=== PATIENT | female | born 1990 | race Caucasian/White ===

== ENCOUNTER 2017-09-10 10:36 | Emergency (ER) | payer OTHER ==
[~2017-09-10] VITALS: Ht 165.1 cm; Wt 85.2 kg
[2017-09-10 10:38] VITALS: Ht 165.1 cm; Wt 85.2 kg
[2017-09-10 11:40] LABS: BASOPHIL # 0.1 10^3/ul (0.0-0.1); BASOPHILS % 0.6 % (0.0-2.0); EOSINOPHILS # 0.2 10^3/ul (0.0-0.5); EOSINOPHILS % 2.1 % (0.0-7.0); HEMATOCRIT 37.9 % (37.0-47.0); HEMOGLOBIN 11.3 g/dl (12.0-16.0); LYMPHOCYTES % 21.9 % (15.0-51.0); MEAN CORPUSCULAR HEMOGLOBIN 23.1 pg (29.0-33.0); MEAN CORPUSCULAR HGB CONC 29.8 g/dl (32.0-37.0); MEAN CORPUSCULAR VOLUME 77.5 fl (82.0-101.0); MEAN PLATELET VOLUME 10.4 fl (7.4-10.4); MONOCYTE # 0.8 10^3/ul (0.3-0.9); NEUTROPHILS % 66.2 % (39.0-77.0); PLATELET COUNT 328 10^3/UL (140-415); RED BLOOD COUNT 4.89 10^6/ul (4.20-5.40); RED CELL DISTRIBUTION WIDTH 20.2 % (11.5-14.5)
[2017-09-10 11:46] LABS: ADD UMIC YES; UR ASCORBIC ACID NEGATIVE (NEGATIVE); UR BACTERIA FEW /HPF (NONE SEEN); UR BILIRUBIN (Dip) NEGATIVE (NEGATIVE); UR BLOOD (Dip) 2+ mg/dL (NEGATIVE); UR CLARITY CLEAR (CLEAR); UR COLOR STRAW (YELLOW); UR GLUCOSE (Dip) NEGATIVE (NEGATIVE); UR KETONES (Dip) NEGATIVE (NEGATIVE); UR LEUKOCYTE ESTERASE (Dip) NEGATIVE Leu/ul (NEGATIVE); UR NITRITE (Dip) NEGATIVE (NEGATIVE); UR RBC 5 /HPF (0-5); UR SPECIFIC GRAVITY (Dip) 1.009 (1.003-1.030); UR TOTAL PROTEIN (Dip) NEGATIVE (NEGATIVE); UR UROBILINOGEN (Dip) NEGATIVE (NEGATIVE)
--- NOTE | 2017-09-10 13:12 | RADRPT ---
PROCEDURE: US Obstetrical 1st Trimester with endovaginal scanning and Doppler CLINICAL INDICATION: Vaginal bleeding TECHNIQUE: Multiple real-time images were acquired of the patient's maternal abdomen utilizing an endovaginal transducer. COMPARISON: None FINDINGS: The uterus is retroverted but normal in size and measures 6.1 cm in sagittal diameter and 4.9 x 4.6 cm in cross diameter.. The endometrial stripe is thickened to 1.1 cm in AP diameter. No gestational sac or pole is id entified. The right ovary measures 2.5 x 2.3 x 1.8 cm. The left ovary measures 2.2 x 2.0 x 1.6 cm Vascular flow is seen in each ovary on Doppler. No adnexal mass or free fluid is identified IMPRESSION: 1. Normal sized retroverted uterus with a 1.1 cm thick endometrial stripe. No gestational sac or fet al pole is evident. 2. A normal ovaries with normal vascular flow and with no adnexal mass or free fluid identified. 3. Correlation with quantitative serial beta HCG is recommended if the patient is or was suspected of being . Physician Love Date Time Electronically viewed and signed by Physician Love on 09/10/2017 13:11 /
[2017-09-10 13:41] VITALS: BP 132/78; PULSE 74; RESP 16; TEMP 98.1
--- NOTE | 2017-09-10 14:54 | ERD ---
ER Documentation Chief Complaint Chief Complaint back pain, vaginal bleeding with clots - LMP 07/21/17 HPI 27 yr old female complaining of vaginal bleeding x 2 days. A1. Patient is 7 weeks . Has not been seen by [facility] yet however did have a appointment scheduled at [facility]. Has not had an ultrasound yet. Had episodes of clotting yesterday. Denies medical problems. NKDA. Surgical history: Ectopic. ROS All systems reviewed and are negative except as per history of present illness. PMhx/Soc History of Surgery: No Anesthesia Reaction: No Hx Neurological Disorder: No Hx Respiratory Disorders: No Hx Cardiac Disorders: No Hx Psychiatric Problems: No Hx Miscellaneous Medical Probl: No Hx Alcohol Use: No Hx Substance Use: No Hx Tobacco Use: No Smoking Status: Never smoker Physical Exam Vitals Vital Signs Date Time Temp Pulse Resp B/P Pulse Ox O2 Delivery O2 Flow Rate FiO2 09/10/17 13:41 98.1 74 16 132/78 100 Room Air 09/10/17 10:38 98.1 71 18 139/75 100 Physical Exam GENERAL: The patient is well-appearing, well-nourished, in no acute distress CHEST: Clear to auscultation bilaterally. There are no rales, wheezes or rhonchi. HEART: Regular rate and rhythm. No murmurs, clicks, rubs or gallops. No S3 or S4. ABDOMEN:Soft, nontender and nondistended. Good bowel sounds. No rebound or guarding. No gross peritonitis. No gross organomegaly or masses. No Booker sign or McBurney point tenderness. BACK: No midline or flank tenderness. : Deferred Result Diagram: 09/10/17 1120 Results 24 hrs Laboratory Tests Test 09/10/17 11:20 09/10/17 11:25 White Blood Count 9.010^3/ul Red Blood Count 4.8910^6/ul Hemoglobin 11.3g/dl Hematocrit 37.9% Mean Corpuscular Volume 77.5fl Mean Corpuscular Hemoglobin 23.1pg Mean Corpuscular Hemoglobin Concent 29.8g/dl Red Cell Distribution Width 20.2% Platelet Count 23114^3/UL Mean Platelet Volume 10.4fl Neutrophils % 66.2% Lymphocytes % 21.9% Monocytes % 9.0% Eosinophils % 2.1% Basophils % 0.6% Nucleated Red Blood Cells % 0.0/100WBC Neutrophils # 6.010^3/ul Lymphocytes # 2.010^3/ul Monocytes # 0.810^3/ul Eosinophils # 0.210^3/ul Basophils # 0.110^3/ul Nucleated Red Blood Cells # 0.010^3/ul Beta HCG, Quantitative 103.5mIU/ml Urine Color STRAW Urine Clarity CLEAR Urine pH 7.0 Urine Specific [place] 1.009 Urine Ketones NEGATIVEmg/dL Urine Nitrite NEGATIVEmg/dL Urine Bilirubin NEGATIVEmg/dL Urine Urobilinogen NEGATIVEmg/dL Urine Leukocyte Esterase NEGATIVELeu/ul Urine Microscopic RBC 5/HPF Urine Microscopic WBC 2/HPF Urine Bacteria FEW/HPF Urine Hemoglobin 2+mg/dL Urine Glucose NEGATIVEmg/dL Urine Total Protein NEGATIVEmg/dl Procedures/MDM DIAGNOSTIC IMAGING REPORT Patient: LEILA SALCEDO : 1990 Age: 27 Sex: F MR #: [id number] DOS: 09/10/17 1118 Ordering MD: DANIELLE MEDEL PA-C Location: E Room/Bed: PROCEDURE: US Obstetrical 1st Trimester with endovaginal scanning and Doppler CLINICAL INDICATION: Vaginal bleeding TECHNIQUE: Multiple real-time images were acquired of the patient's maternal abdomen utilizing an endovaginal transducer. COMPARISON: None FINDINGS: The uterus is retroverted but normal in size and measures 6.1 cm in sagittal diameter and 4.9 x 4.6 cm in cross diameter.. The endometrial stripe is thickened to 1.1 cm in AP diameter. No gestational sac or pole is identified. The right ovary measures 2.5 x 2.3 x 1.8 cm. The left ovary measures 2.2 x 2.0 x 1.6 cm Vascular flow is seen in each ovary on Doppler. No adnexal mass or free fluid is identified IMPRESSION: 1. Normal sized retroverted uterus with a 1.1 cm thick endometrial stripe. No gestational sac or pole is evident. 2. A normal ovaries with normal vascular flow and with no adnexal mass or free fluid identified. 3. Correlation with quantitative serial beta HCG is recommended if the patient is or was suspected of being . MDM: 27-year-old female complaining of vaginal bleeding clotting 2 days. Patient's beta quant is 100 and very low with no signs of intrauterine within the past. I have low suspicion for viable at this time patient is likely experiencing miscarriage. A low suspicion for ectopic as no mass is seen within the adnexa with no tenderness to palpation. Patient' s beta quant is significantly low. Patient's urine does not appear infected. Rh+ so no indication for RhoGam at this time. Patient is told to keep appointment with [facility] for follow-up exam. Patient is told symptoms change or worsen to return to the ER. All questions answered discharge. Departure Diagnosis: Primary Impression: Vaginal bleeding Condition: Stable Patient Instructions: Possible Miscarriage (Threatened ) Additional Instructions: FOLLOW UP WITH YOUR PRIMARY CARE PHYSICIAN TOMORROW.Return to this facility if you are not improving as expected. TIMOTHY MEDEL PA-C Sep 10, 2017 14:54
== END 2017-09-10 13:42 | disposition home or self-care (01) ==
LOC: FTE 10:36
DX: O20.9 Hemorrhage in early pregnancy, unspecified (principal); R10.2 Pelvic and perineal pain; Z3A.01 Less than 8 weeks gestation of pregnancy
CPT/HCPCS: 36415; 76801; 76817; 81001; 84702; 85025; 86900; 86901; Z7502

== ENCOUNTER 2017-10-31 01:50 | Inpatient (IN) | END 2017-10-31 15:30 | disposition home or self-care (01) | DRG 777 ==